=== PATIENT | male | born 1985 | race Two or more races ===

== ENCOUNTER 2024-04-07 13:46 | Inpatient (IN) | payer BC, MEDICAID ==
[~2024-04-07] VITALS: Ht 180.3 cm; Wt 145.0 kg
--- NOTE | 2024-04-07 14:06 | ED.PDOC ---
Musculoskeletal HPI Comments 39 y.o male with PMHx of thyroid and hyperlipidemia, presents to the ED for a chief complaint of bilateral hand and feet swelling that presented 3-4 days ago. Patient reports spontaneous onset of swelling with no recent trauma or cardiac history. Patient does mention non compliance with thyroid medication for about one month. He denies any chest pain, SOB, pain, nausea, vomiting, numbness or weakness sensation. He admits to marijuana, alcohol tobacco and cocaine use. Chief Complaint: Extremity Swelling Time Seen by MD: 14:00 Reviewed Notes: Nurses Notes, Medications, Allergies Information Source: Patient Mode of Arrival: Ambulatory Location: Bilateral Extremity Location: Foot, Hand Timing: Days Severity: Moderate Able to Move Extremity: Yes Bear Weight: Fully Pain: Moderate Mechanism: None Circumstances: Spontaneous Onset of Symptoms: Spontaneous Symptoms: Swelling DVT Risk Factors: NONE Associated signs and symptoms: Swelling Past Medical History PAST MEDICAL HISTORY: High Lipids, Thyroid Surgical History (Other): [employer] shunt x2 Family History Family History: Reviewed,noncontributory to illness Social History Smoker: Cigarettes Alcohol: Occasionally Drugs: Cocaine, Marijuana Lives In: Home Constitutional: denies: chills, diaphoresis, fatigue, fever, malaise, sweats, weakness, others EENTM: denies: blurred vision, double vision, ear bleeding, ear discharge, ear drainage, ear pain, ear ringing, eye pain, eye redness, hearing loss, mouth pain, mouth swelling, nasal discharge, nose bleeding, nose congestion, nose pain, photophobia, tearing, throat pain, throat swelling, voice changes, others Respiratory: denies: cough, hemoptysis, orthopnea, SOB at rest, shortness of breath, SOB with excertion, stridor, wheezing, others Cardiovascular: denies: chest pain, dizzy spells, diaphoresis, Dyspnea on exer tion, edema, irregular heart beat, left arm pain, lightheadedness, palpitations, PND, syncope, others Gastrointestinal: denies: abdomen distended, abdominal pain, blood streaked bowels, constipated, diarrhea, dysphagia, difficulty swallowing, hematemesis, melena, nausea, poor appetite, poor fluid intake, rectal bleeding, rectal pain, vomiting, others Genitourinary: denies: burning, dysuria, flank pain, frequency, hematuria, incontinence, penile discharge, penile sore, pain, testicle pain, testicle swelling, urgency, others Neurological: denies: dizziness, fainting, headache, left sided numbness, left sided weakness, numbness, paresthesia, pre-existing deficit, right sided numbness, right sided weakness, seizure, speech problems, tingling, tremors, weakness, others Musculoskeletal: reports: others (Bilateral hand and feet swelling); denies: back pain, gout, joint pain, joint swelling, muscle pain, muscle stiffness, neck pain Integumetry: denies: bruises, change in color, change in hair/nails, dryness, laceration, lesions, lumps, rash, wounds, others Allergic/Immunocompromised: denies: Difficulty Healing, Frequent Infections, Hives, Itching, others Hematologic/Lymphatic: denies: anemia, blood clots, easy bleeding, easy bruising, swollen glands, others Endocrine: denies: excessive hunger, excessive sweating, excessive thirst, excessive urination, flushing, intolerance to cold, intolerance to heat, unexplained weight gain, unexplained weight loss, others Psychiatric: denies: anxiety, bipolar disorder, depression, hopeless, panic disorder, schizophrenia, sleepless, suicidal, others All Other Systems: Reviewed and Negative Physical Exam General Appearance: Moderate Distress, Obese HEENT: Normal ENT Inspection, Pharynx Normal, TMs Normal Neck: Full Range of Motion, Non-Tender, Normal, Normal Inspection Respiratory: Chest Non-Tender, Lungs Clear, No Accessory Muscle Use, No Respiratory Distress, Normal Breath Sounds Cardiovascular: No Edema, No JVD, No Murmur, No Gallop, Normal Peripheral Pulses, Regular Rate/Rhythm Breast Exam: Deferred Gastrointestinal: No Organomegaly, Non Tender, No Pulsatile Mass, Normal Bowel Sounds, Soft Genitalia: Deferred Pelvic: Deferred Rectal: Deferred Extremities: No calf tenderness, Normal capillary refill, Pedal edema Musculoskeletal : Apperance: Normal Neurologic: Alert, cotton seed culler II-XII nml as Tested, Motor Weakness, Normal Affect, Normal Mood, No Sensory Deficits Cerebellar Function: Normal Reflexes: Normal Skin: Dry, Pallor, Warm Lymphatic: No Adenopathy Was a procedure done? Was a procedure done?: No Differential Diagnosis EXT Differential Diagnosis: Cellulitis, Deep Vein Thrombosis, Sprain, Gout, Contusion, Strain, Rheumatoid X-Ray, Labs, Meds, VS Vital Signs Date Time Temp Pulse Resp B/P (MAP) Pulse Ox O2 Delivery O2 Flow Rate FiO2 04/07/24 13:56 97.4 71 14 115/76 (89) 97 Lab Test 04/07/24 15:11 Range/Units White Blood Count 7.9 4.4-10.8 10^3/uL Red Blood Count 4.21 L 4.5-5.90 10^6/uL Hemoglobin 13.4 L 13.5-17.5 g/dL Hematocrit 39.9 L 41.0-53.0 % Mean Corpuscular Volume 94.7 80.0-100.0 fL Mean Corpuscular Hemoglobin 31.8 28.0-32.0 pg Mean Corpuscular Hemoglobin Concent 33.6 32.0-36.0 g/dL Red Cell Distribution Width 14.5 H 11.8-14.3 % Platelet Count 244 140-450 10^3/uL Mean Platelet Volume 8.0 6.9-10.8 fL Neutrophils (%) (Auto) 58.9 37.0-80.0 % Lymphocytes (%) (Auto) 32.5 10.0-50.0 % Monocytes (%) (Auto) 6.0 0.0-12.0 % Eosinophils (%) (Auto) 1.8 0.0-7.0 % Basophils (%) (Auto) 0.8 0.0-2.0 % Neutrophils # (Auto) 4.7 1.6-8.6 10 ^3/uL Lymphocytes # (Auto) 2.6 0.4-5.4 10 ^3/uL Monocytes # (Auto) 0.5 0-1.3 10 ^3/uL Eosinophils # (Auto) 0.1 0-0.8 10 ^3/uL Basophils # (Auto) 0.1 0-0.2 10 ^3/uL Nucleated Red Blood Cells 0.1 % Sodium Level Pending Potassium Level Pending Chloride Level Pending Carbon Dioxide Level Pending Anion Gap Pending Blood Urea Nitrogen Pending Creatinine Pending Glomerular Filtration Rate Calc Pending BUN/Creatinine Ratio Pending Serum Glucose Pending Calcium Level Pending B-Type Natriuretic Peptide 10.62 0-100 pg/mL XY CHEST TWO VIEWS ROUTINE CLINICAL HISTORY: body swelling COMPARISON: None TECHNIQUE: Frontal and lateral view of the chest was obtained FINDINGS: Lines and Tubes: Catheter the right cervical soft tissues tip is not seen beyond the mid mediastinum. Lungs: No focal consolidation. Pleura: No effusion. No pneumothorax. Cardiomediastinal contours: Unremarkable Bones: No acute osseous abnormality. IMPRESSION: 1. No acute cardiopulmonary disease. 2. There is a catheter traversing the right cervical soft tissues and the tip is lost over the mid mediastinum. The patient's CBC is within normal limits The BNP is 10.62 The patient was being admitted to the hospitalist Images Reviewed?: Images reviewed and evaluated by me Time of 1ST Reevaluation: 14:02 Reevaluation 1ST: Unchanged Patient Education/Counseling: Diagnosis, Treatment, Prognosis Family Education/Counseling: No Family Present Departure 1 Departure Time of Disposition: 18:46 Impression: Primary Impression: Swelling of body region Disposition: ADMITTED INPATIENT Admit to: Med Surg Condition: Fair Critical Care Note Critical Care Time?: No Stability Stability form required: Yes Unstable for transfer: ED Physician Assesment (Clinical assesment) I personally scribed for BOBBY LEBLANC MD ([email or web address]) on 04/07/24 at 14:06. Electronically submitted by Sirena Glover ([facility]). I personally scribed for BOBBY LEBLANC MD ([email or web address]) on 04/07/24 at 15:38. Electronically submitted by Sirena Glover ([facility]). BOBBY LEBLANC MD Apr 07, 2024 14:06
--- NOTE | 2024-04-07 14:26 | DVH ---
XY CHEST TWO VIEWS ROUTINE CLINICAL HISTORY: body swelling COMPARISON: None TECHNIQUE: Frontal and lateral view of the chest was obtained FINDINGS: Lines and Tubes: Catheter the right cervical soft tissues tip is not seen beyond the mid mediastinum. Lungs: No focal consolidation. Pleura: No effusion. No pneumothorax. Cardiomediastinal contours: Unremarkable Bones: No acute osseous abnormality. IMPRESSION: 1. No acute cardiopulmonary disease. 2. There is a catheter traversing the right cervical soft tissues and the tip is lost over the mid me diastinum.
[2024-04-07 15:34] LABS: Basophils # (auto) 0.1 10 ^3/uL (0-0.2); Basophils % (auto) 0.8 % (0.0-2.0); Eosinophils # (auto) 0.1 10 ^3/uL (0-0.8); Eosinophils % (auto) 1.8 % (0.0-7.0); Hematocrit 39.9 % (41.0-53.0); Hemoglobin 13.4 g/dL (13.5-17.5); Lymphocytes # (auto) 2.6 10 ^3/uL (0.4-5.4); Lymphocytes % (auto) 32.5 % (10.0-50.0); Mean Corpuscular Hemoglobin 31.8 pg (28.0-32.0); Mean Corpuscular Hgb Conc. 33.6 g/dL (32.0-36.0); Mean Corpuscular Volume 94.7 fL (80.0-100.0); Monocytes # (auto) 0.5 10 ^3/uL (0-1.3); Neutrophils # (auto) 4.7 10 ^3/uL (1.6-8.6); Neutrophils % (auto) 58.9 % (37.0-80.0); Nucleated Red Blood Cells % 0.1 %; Platelet Count (auto) 244 10^3/uL (140-450); Red Blood Cells 4.21 10^6/uL (4.5-5.90); Red Cell Distribution Width 14.5 % (11.8-14.3); White Blood Cell 7.9 10^3/uL (4.4-10.8)
[2024-04-07 19:25] LABS: Anion Gap 7 (5-15)
[2024-04-07 19:32] LABS: BUN/Creatinine Ratio 12.8 (10.0-20.0)
[2024-04-07 19:33] LABS: Blood Urea Nitrogen 19 mg/dL (9-23); Calcium 9.9 mg/dL (8.7-10.4); Carbon Dioxide 33 mmol/L (20-31); Chloride 102 mmol/L (98-107); Glucose 102 mg/dL (74-106); Potassium 4.1 mmol/L (3.5-5.1); Sodium 142 mmol/L (136-145)
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
--- NOTE | 2024-04-07 22:25 | ECG ---
[facility] Test Date: 2024-04-07 Test Time: 22:24:00 Pat Name: SULLY LEACH Department: ED Room: [address] [place] [address] A Gender: M Digital Strategy Specialist: LINDA : 1985 Requested By: RODRIGO BERNARD Order Number: [id number] Reading MD: Janes Brewer Measurements Intervals [place] Rate: 54 P: 0 OR: 0 QRS: 101 QRSD: 112 T: 28 QT: 500 QTc: 474 Interpretive Statements Junctional rhythm Borderline intraventricular conduction delay Baseline wander in lead(s) V4 Electronically Signed On 04-08-2024 17:51:07 PST by Janes Brewer Please click the below link to view image of tracing.
[2024-04-08 00:13] VITALS: BP 107/72; PULSE 58; RESP 16; TEMP 97.6; O2SAT 94
[2024-04-08] MEDS ORDERED: SIMV20TA20 PO ×2 (01:00→17:52)
[2024-04-08] MEDS ORDERED: LEVO-848 PO (01:00)
[2024-04-08] MEDS: FUROSEMIDE 20 MG/2 ML VIAL IV ONE (01:09)
[2024-04-08] MEDS: ATORVASTATIN 20 MG TAB PO ONE (01:09)
[2024-04-08] MEDS: ENOXAPARIN SOD 40 MG/0.4 ML SYRINGE SC ONE (01:09)
[2024-04-08 02:00] VITALS: BP 97/58; PULSE 64; RESP 16; TEMP 98.1; O2SAT 95
--- NOTE | 2024-04-08 02:19 | DVH ---
INDICATION: DONTE TECHNIQUE: Multiple real-time sonographic images of the kidneys and bladder were obtained. COMPARISON: None FINDINGS: The right kidney measures 11.6 cm cm in length. The right renal echogenicity, contour and cortical th ickness are within normal limits. No hydronephrosis or large masses/calculi are seen. The left kidney measures 11.4 cm in length. The left renal echogenicity, contour, and cortical thickn ess are within normal limits. No hydronephrosis or large masses/calculi are seen. The urinary bladder is contracted limiting assessment. IMPRESSION: 1. Unremarkable examination of the kidneys. Urinary bladder contracted, limiting assessment.
[2024-04-08 02:35] LABS: Urine Bacteria None Seen /hpf (None Seen)
[2024-04-08 02:46] LABS: Sodium Urine 153 mmol/L (40-220)
[2024-04-08 02:54] LABS: Creatinine, Urine 21.06 mg/dL (30.0-125.0)
[2024-04-08 03:02] LABS: Amphetamine Screen, Urine Neg (NEGATIVE); Barbiturate Scree,Urine Neg (NEGATIVE); Benzodiazephine Screen, Urine Neg (NEGATIVE); Opiate Scree,Urine Neg (NEGATIVE); Phencyclidine Screen, Urine Neg (NEGATIVE)
[2024-04-08 03:03] LABS: Cannabinoid Screen, Urine Pos (NEGATIVE); Cocaine Screen, Urine Neg (NEGATIVE)
[2024-04-08 03:04] LABS: Urine Blood Negative /uL (Negative); Urine Clarity Clear (Clear); Urine Color Colorless (Yellow); Urine Protein, UAD Negative (Negative); Urine Specific Gravity 1.006 (1.001-1.035); Urine Squamous Epithelial Cell FEW /hpf (<5); Urine Urobilinogen Normal (Negative)
[2024-04-08 03:05] LABS: Urine WBC < 1 /HPF (0-3)
[2024-04-08 03:55] LABS: Basophils # (auto) 0 10 ^3/uL (0-0.2); Basophils % (auto) 0.4 % (0.0-2.0); Eosinophils # (auto) 0.1 10 ^3/uL (0-0.8); Eosinophils % (auto) 1.5 % (0.0-7.0); Hematocrit 39.6 % (41.0-53.0); Hemoglobin 13.5 g/dL (13.5-17.5); Lymphocytes # (auto) 1.7 10 ^3/uL (0.4-5.4); Lymphocytes % (auto) 17.7 % (10.0-50.0); Mean Corpuscular Hgb Conc. 34.2 g/dL (32.0-36.0); Mean Corpuscular Volume 93.7 fL (80.0-100.0); Monocytes # (auto) 0.4 10 ^3/uL (0-1.3); Monocytes % (auto) 4.6 % (0.0-12.0); Neutrophils # (auto) 7.3 10 ^3/uL (1.6-8.6); Neutrophils % (auto) 75.8 % (37.0-80.0); Nucleated Red Blood Cells % 0.1 %; Platelet Count (auto) 226 10^3/uL (140-450); Red Blood Cells 4.22 10^6/uL (4.5-5.90); Red Cell Distribution Width 14.2 % (11.8-14.3); White Blood Cell 9.6 10^3/uL (4.4-10.8)
[2024-04-08 04:10] LABS: Alanine Aminotransferase 28 U/L (7-40); Anion Gap 10 (5-15); Aspartate Aminotransferase 26 U/L (13-40); BUN/Creatinine Ratio 13.6 (10.0-20.0); Blood Urea Nitrogen 17 mg/dL (9-23); Carbon Dioxide 28 mmol/L (20-31); Chloride 103 mmol/L (98-107); Glucose 104 mg/dL (74-106); Magnesium 2.3 mg/dL (1.6-2.6); Potassium 3.6 mmol/L (3.5-5.1); Sodium 141 mmol/L (136-145); Total Protein 7.2 g/dL (5.7-8.2)
[2024-04-08 04:11] LABS: Albumin 4.8 g/dL (3.2-4.8); Alkaline Phosphatase 43 U/L (46-116); Bilirubin, Total 1.6 mg/dL (0.2-1.0)
[2024-04-08 04:12] LABS: Free T3 0.64 pg/mL (2.3-4.2); Free T4 (Free Thyroxine) 0.19 ng/dL (0.89-1.76)
[2024-04-08 05:04] LABS: Triglycerides 118 mg/dL (< 150)
[2024-04-08 05:06] LABS: Cholesterol 182 mg/dL (< 200); HDL Cholesterol 59 mg/dL (40-59)
[2024-04-08 05:11] LABS: Bilirubin, Direct 0.4 mg/dL (<0.3); LDL Cholesterol 108 mg/dL (< 100)
[2024-04-08] MEDS: LEVOTHYROXINE SODIUM 100 MCG TAB PO SCH (05:33)
[2024-04-08 06:00] VITALS: BP 92/62; PULSE 66; RESP 16; TEMP 98.4; O2SAT 95
[2024-04-08 09:24] VITALS: BP 116/62; PULSE 68; RESP 16; TEMP 98.2; O2SAT 97
[2024-04-08] MEDS: ENOXAPARIN SOD 40 MG/0.4 ML SYRINGE SC SCH (09:25)
--- NOTE | 2024-04-08 13:38 | DVHPNRES ---
Progress Note Objective vital signs Vital Sign Date Time Temp Pulse Resp B/P (MAP) Pulse Ox O2 Delivery O2 Flow Rate FiO2 04/08/24 09:24 98.2 68 16 116/62 (80) 97 98.2 04/08/24 01:52 Room Air* 0 21 medications Current Medications Medications Dose Ordered Sig/Nadira Route Start Time Stop Time Status Last Admin Dose Admin Levothyroxine Sodium 100 mcg QAM@0600 PO 04/08/24 06:00 04/08/24 05:33 100 MCG Atorvastatin Calcium 40 mg HS PO 04/08/24 22:00 Enoxaparin Sodium 40 mg DAILY SC 04/08/24 10:00 04/08/24 09:25 40 MG laboratory and microbiology Laboratory Tests 04/08/24 03:16 Test 04/08/24 03:16 Range/Units Serum Glucose 104 74-106 mg/dL NIKIA FAULKNER RESIDENT Apr 08, 2024 13:38
[2024-04-08 13:50] VITALS: BP 98/72; PULSE 58; RESP 20; TEMP 97.9; O2SAT 100
[2024-04-08 17:15] VITALS: BP 120/79; PULSE 67; RESP 18; TEMP 97.8; O2SAT 97
[2024-04-08] MEDS ORDERED: LEVO100T8 PO (17:52)
--- NOTE | 2024-04-08 19:38 | DVHDSRES ---
Discharge Summary Date of Admission Resident Creating Document: NIKIA FAULKNER RESIDENT Apr 07, 2024 at 21:23 Date of Discharge: Apr 08, 2024 Admitting Diagnosis Hypothyroidism, with a poor medicine compliance Myxedema coma ruled out Labs/Diagnostic Data: Laboratory Results Test 04/08/24 03:16 04/08/24 02:35 04/07/24 15:11 White Blood Count 9.6 10^3/uL (4.4-10.8) Red Blood Count 4.22 10^6/uL (4.5-5.90) Hemoglobin 13.5 g/dL (13.5-17.5) Hematocrit 39.6 % (41.0-53.0) Mean Corpuscular Volume 93.7 fL (80.0-100.0) Mean Corpuscular Hemoglobin 32.0 pg (28.0-32.0) Mean Corpuscular Hemoglobin Concent 34.2 g/dL (32.0-36.0) Red Cell Distribution Width 14.2 % (11.8-14.3) Platelet Count 226 10^3/uL (140-450) Mean Platelet Volume 7.7 fL (6.9-10.8) Neutrophils (%) (Auto) 75.8 % (37.0-80.0) Lymphocytes (%) (Auto) 17.7 % (10.0-50.0) Monocytes (%) (Auto) 4.6 % (0.0-12.0) Eosinophils (%) (Auto) 1.5 % (0.0-7.0) Basophils (%) (Auto) 0.4 % (0.0-2.0) Neutrophils # (Auto) 7.3 10 ^3/uL (1.6-8.6) Lymphocytes # (Auto) 1.7 10 ^3/uL (0.4-5.4) Monocytes # (Auto) 0.4 10 ^3/uL (0-1.3) Eosinophils # (Auto) 0.1 10 ^3/uL (0-0.8) Basophils # (Auto) 0 10 ^3/uL (0-0.2) Nucleated Red Blood Cells 0.1 % D-Dimer, Quantitative 0.31 mg/L FEU (0.0-0.49) Sodium Level 141 mmol/L (136-145) Potassium Level 3.6 mmol/L (3.5-5.1) Chloride Level 103 mmol/L (98-107) Carbon Dioxide Level 28 mmol/L (20-31) Anion Gap 10 (5-15) Blood Urea Nitrogen 17 mg/dL (9-23) Creatinine 1.25 mg/dL (0.700-1.30) Glomerular Filtration Rate Calc 76 mL/min (>90) BUN/Creatinine Ratio 13.6 (10.0-20.0) Serum Glucose 104 mg/dL (74-106) Calcium Level 10.0 mg/dL (8.7-10.4) Magnesium Level 2.3 mg/dL (1.6-2.6) Total Bilirubin 1.6 mg/dL (0.2-1.0) Direct Bilirubin 0.4 mg/dL (<0.3) Aspartate Amino Transferase (AST) 26 U/L (13-40) Alanine Aminotransferase (ALT) 28 U/L (7-40) Alkaline Phosphatase 43 U/L (46-116) Total Protein 7.2 g/dL (5.7-8.2) Albumin 4.8 g/dL (3.2-4.8) Triglycerides Level 118 mg/dL (< 150) Cholesterol Level 182 mg/dL (< 200) LDL Cholesterol 108 mg/dL (< 100) HDL Cholesterol 59 mg/dL (40-59) Thyroid Stimulating Hormone (TSH) 98.27 uIU/mL (0.55-4.78) Free Thyroxine (T4) Calculated 0.19 ng/dL (0.89-1.76) Free Triiodothyronine (T3) pg/mL 0.64 pg/mL (2.3-4.2) Urine Color Colorless (Yellow) Urine Clarity Clear (Clear) Urine pH 5.0 (5.0-9.0) Urine Specific [place] 1.006 (1.001-1.035) Urine Protein Negative (Negative) Urine Ketones Negative (Negative) Urine Blood Negative /uL (Negative) Urine Nitrite Negative (Negative) Urine Bilirubin Negative (Negative) Urine Urobilinogen Normal mg/dL (Negative) Urine Leukocyte Esterase Negative /uL (Negative) Urine RBC <1 /hpf (0 - 3) Urine Microscopic WBC < 1 /HPF (0-3) Urine Squamous Epithelial Cells Few /hpf (<5) Urine Bacteria None seen /hpf (None Seen) Urine Creatinine 21.06 mg/dL (30.0-125.0) Urine Sodium 153 mmol/L (40-220) Urine Glucose Normal mg/dL (Normal) Urine Opiates Screen Neg (NEGATIVE) Urine Fentanyl Screen Neg (NEGATIVE) Urine Barbiturates Screen Neg (NEGATIVE) Urine Phencyclidine Screen Neg (NEGATIVE) Urine Amphetamines Screen Neg (NEGATIVE) Urine Benzodiazepines Screen Neg (NEGATIVE) Urine Cocaine Screen Neg (NEGATIVE) Urine Cannabinoids Screen Pos (NEGATIVE) B-Type Natriuretic Peptide 10.62 pg/mL (0-100) Other Laboratory Tests 04/08/24 03:16 Brief Hx & Hospital Course: A 39-year-old male with a history of hypothyroidism, dyslipidemia, and morbid obesity (BMI 44.6) was admitted for bilateral lower limb swelling. The patient had poor medication compliance, leading to hypothyroid symptoms, including facial puffiness, fatigue, and sinus bradycardia. Upon restarting levothyroxine, he developed pitting pedal edema. Imaging revealed normal kidneys, and labs indicated possible DONTE (creatinine 1.48) which resolved.The patients hypothyroidism was managed with levothyroxine, and diuresis was initiated with furosemide. Dyslipidemia management continued with atorvastatin, and counseling was provided for smoking and marijuana cessation. TSH 98, no symptoms of myxedema coma During hospitalization, he remained hemodynamically stable with no acute distress. He was discharged on a cardiac diet with instructions for follow-up care for thyroid optimization The patient was counseled on the importance of medication adherence, lifestyle modifications for weight loss, and smoking cessation, given his risk factors. General Appearance: Alert, Oriented X3, Cooperative, No acute distress HEENT: Mild facial puffiness Respiratory: Clear to auscultation, Normal air movement Cardiovascular: Regular rate, Normal S1, Normal S2, No murmurs, no chest wall tenderness Abdominal: Normal bowel sounds, Soft, No tenderness, No hepatospenomegaly, No masses Extremities: Grade 2 bilateral lower limb pedal edema, with bilateral hands swelling Skin: Generalized Dry, take and coarse skin more prominent on lower limb Neuro: Normal gait, Normal speech, Strength at 5/5 X4 ext, Normal tone, Sensation intact, Cranial nerves 3-12 NL, Reflexes 2+ Psych/Mental Status: Mental status NL, Mood NL Case discussed with Dr lBack Time spent on care 23 min Operations or Procedures INDICATION: DONTE TECHNIQUE: Multiple real-time sonographic images of the kidneys and bladder were obtained. COMPARISON: None FINDINGS: The right kidney measures 11.6 cm cm in length. The right renal echogenicity, contour and cortical thickness are within normal limits. No hydronephrosis or large masses/calculi are seen. The left kidney measures 11.4 cm in length. The left renal echogenicity, contour, and cortical thickness are within normal limits. No hydronephrosis or large masses/calculi are seen. The urinary bladder is contracted limiting assessment. IMPRESSION: 1. Unremarkable examination of the kidneys. Urinary bladder contracted, limiting assessment. Condition at Discharge: Stable Final Diagnosis/Problems List Hypothyroidism, with a poor medicine compliance Myxedema coma ruled out Bilateral pitting pedal edema due to hypothyroidsim Sinus bradycardia, likely due to hypothyroidism Dyslipidemia Marijuana use disorder Morbid obesity DONTE VMN resolved Discharge Disposition: Home Discharge Instruct/Medications Diet: Consistent carbohydrate Activity: Light activity Follow Up/Referral: [facility] Daniels Medications: see prescription Discharge Statement: "Patient was advised to return to the ER or call 911 if any headaches, dizziness, shortness of breath, chest pain, abdominal pain, bleeding, fevers, or worsening of medical condition. Patient was counseled about treatment plan, medications, possible side effects, patientverbalized understanding. All questions were answered to the best of my ability. This discharge took greater then 30 minutes in planning, reviewing documentation, counseling the patient, and discussing with other team members." ASSESSMENT ASSESSMENT Assessment hypothyroidism NIKIA FAULKNER RESIDENT Apr 08, 2024 19:38
[2024-04-08] MEDS ORDERED: ATORVASTATIN 20 MG TAB PO SCH (22:00)
== END 2024-04-08 18:45 | disposition home or self-care (01) | DRG 643 ==
LOC: ER 13:46 → OVERFLOW 21:23
PROVIDERS: ADMIT Student in an Organized Health Care Education/Training Program; ATTEND Emergency Medicine
DX: E03.9 Hypothyroidism, unspecified (principal); N17.0 Acute kidney failure with tubular necrosis; Z68.41 Body mass index [BMI] 40.0-44.9, adult; R00.1 Bradycardia, unspecified; E78.5 Hyperlipidemia, unspecified; E66.01 Morbid (severe) obesity due to excess calories; F17.210 Nicotine dependence, cigarettes, uncomplicated; F14.90 Cocaine use, unspecified, uncomplicated; F12.90 Cannabis use, unspecified, uncomplicated; Z98.2 Presence of cerebrospinal fluid drainage device
CPT/HCPCS: 36415; 71046; 76775; 80048; 80053; 80061; 80076; 80307; 81001; 82570; 83735; 83880; 84300; 84439; 84443; 84481; 85025; 85379; 93005; G0378

== ENCOUNTER → 2024-11-21 | Outpatient (CLI) | payer BC ==
[~2024-11-21] MED LIST: LEVO-848 PO; LEVO100T8 PO; SIMV20TA20 PO
[2024-11-21 08:55] LABS: Hematocrit 41.3 % (41.0-53.0); Hemoglobin 14.1 g/dL (13.5-17.5); Mean Corpuscular Hemoglobin 30.6 pg (28.0-32.0); Mean Corpuscular Volume 89.7 fL (80.0-100.0); Nucleated Red Blood Cells % 0.0 %
[2024-11-21 09:01] LABS: Urine Protein, UAD TRACE (Negative)
[2024-11-21 09:14] LABS: Alanine Aminotransferase 13 U/L (7-40); Alkaline Phosphatase 52 U/L (46-116); Anion Gap 10 (5-15); BUN/Creatinine Ratio 7.6 (10.0-20.0); Calcium 9.3 mg/dL (8.7-10.4); Carbon Dioxide 27 mmol/L (20-31); Chloride 105 mmol/L (98-107); Cholesterol 199 mg/dL (< 200); Glucose 101 mg/dL (74-106); HDL Cholesterol 53 mg/dL (40-59); Sodium 142 mmol/L (136-145); Total Protein 7.3 g/dL (5.7-8.2)
[2024-11-21 09:15] LABS: Albumin 4.8 g/dL (3.2-4.8); Bilirubin, Total 2.0 mg/dL (0.2-1.0); Blood Urea Nitrogen 9 mg/dL (9-23); Potassium 3.3 mmol/L (3.5-5.1); Triglycerides 190 mg/dL (< 150)
== END | disposition home or self-care (01) ==
LOC: LAB 08:38
PROVIDERS: ATTEND Internal Medicine
DX: Z00.01 Encounter for general adult medical examination with abnormal findings (principal)
CPT/HCPCS: 36415; 80053; 80061; 81001; 83036; 84439; 84443; 85025